=== PATIENT | male | born 1960 | race Caucasian/White ===

== ENCOUNTER 2017-09-24 07:37 | Day surgery (SDC) | payer BC ==
[2017-09-24] MEDS ORDERED: Lactated Ringers 1,000 ML IV SCH (07:45)
[2017-09-24] MEDS ORDERED: Midazolam 1 MG/ML 2 ML SDV IV ONE (10:00)
[2017-09-24] MEDS ORDERED: fentaNYL 100 MCG/2 ML SDV IV ONE (10:00)
[2017-09-24] MEDS ORDERED: Propofol 200 MG/20 ML SDV IV ONE (10:00)
--- NOTE | 2017-09-24 10:20 | PCM.OPNOTE ---
- General Post-Op/Procedure Note Date of Surgery/Procedure: 09/24/17 Operative Procedure(s): c scope Findings: diverticulosis of sigmoid and descending colon Pre Op Diagnosis: screening Post-Op Diagnosis: diverticulosis of sigmoid and descending colon Anesthesia Technique: MAC Primary Surgeon: Santos Juarez Anesthesia Provider: Uli Ayala Complications: None Condition: Good Free Text/Narrative:: see dictation #[id number]
--- NOTE | 2017-09-24 12:16 | OR ---
DATE OF OPERATION: 09/24/2017 SURGEON: Santos Juarez MD PROCEDURE PERFORMED: Colonoscopy. PREOPERATIVE DIAGNOSIS: Need for screening C-scope. POSTOPERATIVE DIAGNOSIS: Diverticulosis of the descending and sigmoid colon. INDICATIONS FOR PROCEDURE: This is a 56-year-old white male who presents for his initial screening colonoscopy. He was offered and accepted the same. DESCRIPTION OF OPERATION: After an excellent IV sedation was administered, digital rectal exam was performed. No marked abnormality was noted. Flexible colonoscope was inserted and advanced into the cecum without difficulty. The prep was excellent. The following findings were noted: Ascending colon, unremarkable. Transverse colon, unremarkable. Descending colon, sigmoid, moderate sigmoid diverticulosis. Rectum and anus, unremarkable. Colon was deflated. Scope was removed. The patient tolerated the procedure well. RECOMMENDATIONS: Repeat scope in 10 years. /[id number] /MODL
== END 2017-09-24 11:31 | disposition home or self-care (01) ==
LOC: FB.SDS 07:37
PROVIDERS: ATTEND Surgery
DX: Z12.11 Encounter for screening for malignant neoplasm of colon (principal); K57.30 Diverticulosis of large intestine without perforation or abscess without bleeding; Z87.891 Personal history of nicotine dependence
CPT/HCPCS: 45378; J2250; J2704; J3010; J7120